=== PATIENT | female | born 1960 | race Caucasian/White ===

== ENCOUNTER 2019-04-02 05:00 | Emergency (ER) | payer OTHER ==
[~2019-04-02] VITALS: Ht 157.5 cm; Wt 117.9 kg
--- NOTE | ~2019-04-02 | EKG ---
[facility] [place] [address] ELECTROCARDIOGRAM REPORT Name: ANABELLE WILLS Room #: REG M.R.#: [id number] Admission: 04/02/19 Attend Phys: Discharge: Date of : 64 Report #: [id number] THIS REPORT FOR: cc: Tyron Nguyen MD, Neal A. MD Epiphany, Epiphany MD ~ THIS REPORT FOR: //name// [facility] ED Test Date: 2019-04-02 Test Time: 06:45:22 Pat Name: ANABELLE WILLS Department: Room: Gender: F [employer]: alexis : 1960 Requested By: Vishal Alford Order Number: [id number] MD: Measurements Intervals [place] Rate: 68 P: 31 NE: 152 QRS: 7 QRSD: 93 T: 36 QT: 395 QTc: 421 Interpretive Statements Sinus rhythm No previous ECG available for comparison [email or web address] By: Oumou Coello MD /EPI
[~2019-04-02 05:00] MED LIST: AMBIEN 10 MG TA10 MG PO; AZITHROMYCIN 2250 MG PO; BACTRIM DS TAB1 EACH PO; BENTYL 20 MG TA20 M1 PO; CEFUROXIME500 MG PO; CIPRO500 MG PO; DOLOPHINE HCL5 MG PO; FENTANYL PATCH75 MCG TRANSDERM; FOLITAB 500 CA1 EAC1 PO; HYDROCODONE-ACE15 ML PO; LIPITOR 20 MG T20 M1 PO; NORCO 5-325 TA1 EAC1 PO; NORCO 5-325 TA1 EACH PO; ONGLYZA5 MG PO; PREDNISONE 10 M10 MG PO; TRANSDERM-SCOP1 EACH TRANSDERM; TRAZODONE HCL100 MG PO; VENTOLIN HFA 1818 GM INH; ZOLOFT50 MG PO; ZYRTEC10 M5 PO
[2019-04-02 06:21] LABS: ABSOLUTE NEUTROPHILS 7.7 thou/uL (1.4-8.2); BASOPHILS 0.7 % (0.0-2.0); EOSINOPHILS 2.9 % (0.0-3.0); HEMATOCRIT 49.5 % (37.0-47.0); HEMOGLOBIN 16.6 gm/dL (12.0-15.0); LYMPHOCYTES 20.6 % (24.0-44.0); MCH 33.1 pg (26.0-34.0); MCHC 33.5 g/dL (28.0-37.0); MCV 98.7 fL (80.0-100.0); MONOCYTES 4.3 % (1.0-8.0); PLATELET COUNT 182 thou/uL (150-400); POLYS 71.5 % (36.0-66.0); RBC 5.01 mil/uL (4.20-5.00); WBC 10.8 thou/uL (4.0-11.0)
[2019-04-02 06:41] LABS: ANION GAP 12 mmol/L (7-16); BUN 20 mg/dL (7-18); CALCIUM 9.3 mg/dL (8.5-10.1); CHLORIDE 101 mmol/L (98-107); CO2 25 mmol/L (21-32); CREATININE 1.2 mg/dL (0.6-1.0); GLUCOSE 125 mg/dL (74-106); POTASSIUM 4.6 mmol/L (3.5-5.1); SODIUM 138 mmol/L (136-145)
[2019-04-02 06:51] LABS: LIPASE 70 U/L (73-393); SGOT 26 U/L (15-37); SGPT 17 U/L (30-65); TOTAL BILIRUBIN 0.6 mg/dL (<0.1-1.0); TOTAL PROTEIN 8.6 g/dL (6.4-8.2); TROPONIN-I <0.06 ng/mL (<0.06)
[2019-04-02 10:23] VITALS: BP 108/66
[2019-04-03] MEDS ORDERED: FLOMAX0.4 MG PO (14:01)
== END 2019-04-02 10:50 | disposition short-term general hospital (02) ==
LOC: ER 05:00
PROVIDERS: Emergency Medicine
DX: R10.31 Right lower quadrant pain (principal); G89.29 Other chronic pain; E66.01 Morbid (severe) obesity due to excess calories; K21.9 Gastro-esophageal reflux disease without esophagitis; M54.9 Dorsalgia, unspecified; F41.9 Anxiety disorder, unspecified; F17.210 Nicotine dependence, cigarettes, uncomplicated; Z87.442 Personal history of urinary calculi; Z68.42 Body mass index [BMI] 45.0-49.9, adult; Z85.05 Personal history of malignant neoplasm of liver; Z88.6 Allergy status to analgesic agent; Z88.8 Allergy status to other drugs, medicaments and biological substances; Z91.018 Allergy to other foods

== ENCOUNTER → 2020-11-25 | Outpatient (CLI) | payer OTHER ==
[~2020-11-25] MED LIST changes: +BUSPIRONE HCL10 MG PO; +FLOMAX0.4 MG PO; +LYRICA300 MG PO; +MELOXICAM15 MG PO; +NORCO 10-325 T1 EACH PO; +OXYBUTYNIN 5 MG5 M2 PO; +PROTONIX40 M1 PO; +PYRIDIUM100 M1 PO
== END ==
LOC: ULTRA 11-24 08:59
PROVIDERS: ATTEND Family Medicine
DX: N88.8 Other specified noninflammatory disorders of cervix uteri (principal); R58 Hemorrhage, not elsewhere classified; Z85.05 Personal history of malignant neoplasm of liver; R10.33 Periumbilical pain; R16.1 Splenomegaly, not elsewhere classified; R16.0 Hepatomegaly, not elsewhere classified

== ENCOUNTER → 2020-12-28 | Outpatient (CLI) | payer OTHER | LOC: RAD 11:09 | PROVIDERS: ATTEND Family Medicine | DX: M43.16 Spondylolisthesis, lumbar region (principal) ==